=== PATIENT | female | born 1995 | race Caucasian/White ===

== ENCOUNTER 2018-10-10 14:17 | Emergency (ER) | payer OTHER, MEDICAID ==
[~2018-10-10] VITALS: Ht 172.7 cm; Wt 45.4 kg
[2018-10-10 14:32] VITALS: BP 118/68
== END 2018-10-10 16:02 | disposition home or self-care (01) ==
LOC: ER 14:22
DX: S81.832A Puncture wound without foreign body, left lower leg, initial encounter (principal); F17.210 Nicotine dependence, cigarettes, uncomplicated; W54.0XXA Bitten by dog, initial encounter; Y93.89 Activity, other specified; Y99.8 Other external cause status; Y92.89 Other specified places as the place of occurrence of the external cause